=== PATIENT | female | born 1955 | race Hispanic/Latino ===

== ENCOUNTER → 2020-06-01 09:05 | Outpatient (CLI) | payer OTHER, SELFPAY ==
--- NOTE | 2020-06-01 09:08 | DI.US.S_ITS ---
PROCEDURE: US CAROTID DOPPLER BI INDICATIONS: Occlusion and stenosis of carotid arteries TECHNIQUE: Color and pulse Doppler interrogation was performed of both carotid systems, with image documentation and velocity measurements. COMPARISON: None. FINDINGS: Stenosis calculations are based on SRU (Society of Radiologists in Ultrasound) criteria. Right side: Brachial blood pressure: 155/68 mm Hg. Common carotid artery peak systolic velocity: 86 cm/sec. Internal carotid artery peak systolic velocity: 214 cm/sec. Internal carotid artery end diastolic velocity: 45 cm/sec. External carotid artery peak systolic velocity: 100 cm/sec. ICA/CCA peak systolic ratio: 2.5 Walker scale imaging description: Atherosclerotic changes can be seen. Percent internal carotid artery stenosis: Greater than 70%. Vertebral artery: Flow direction is antegrade. Left side: Brachial blood pressure: 157/62 mm Hg. Common carotid artery peak systolic velocity: 93 cm/sec. Internal carotid artery peak systolic velocity: 125 cm/sec. Internal carotid artery end diastolic velocity: 30 cm/sec. External carotid artery peak systolic velocity: 96 cm/sec. ICA/CCA peak systolic ratio: 1.3 Walker scale imaging description: Moderate atherosclerotic changes are seen. Percent internal carotid artery stenosis: 50-69% by velocity criteria. Vertebral artery: Flow direction is antegrade. IMPRESSION: There is greater than 70% stenosis seen involving the right internal carotid artery. Vascular surgery/interventional radiology consultation is recommended. By velocity criteria, there is a moderate stenosis (between 50 and 69% stenosis) within the left proximal internal carotid artery. The true degree of stenosis is felt most likely to be at the lower end of this range. Dictated by: Balta Cardenas M.D. on 06/01/2020 at 10:30 Approved by: Balta Cardenas M.D. on 06/01/2020 at 10:32
== END ==
PROVIDERS: Referring Provider Internal Medicine; Visit Provider Internal Medicine
DX: I65.23 Occlusion and stenosis of bilateral carotid arteries (principal)
CPT/HCPCS: 93880

== ENCOUNTER → 2020-07-15 15:21 | Outpatient (CLI) | payer OTHER, SELFPAY ==
[2020-07-15 16:15] LABS: Add Manual Diff / Slide Review NO; Basophils Absolute Auto 100 /uL (0-100); Basophils Percent Auto 0.7 % (0-2); Eosinophils Absolute Auto 200 /uL (0-450); Eosinophils Percent Auto 2.2 % (2-4); Hematocrit 37.2 % (36-46); Hemoglobin 12.6 g/dL (12.0-16.0); Lymphocytes Absolute Auto 2000 /uL (1100-4500); Lymphocytes Percent Auto 19.8 % (25-40); Mean Corpuscular HGB Conc 33.9 % (30-36); Mean Corpuscular Hemoglobin 30.6 PG (26-34); Mean Corpuscular Volume 90.2 fL (80-100); Monocytes Absolute Auto 600 /uL (0-900); Neutrophils Absolute Auto 7400 /uL (1500-7000); Neutrophils Percent Auto 71.3 % (50-75); Platelet Count 306 X10^3/uL (150-400); Red Blood Cell Count 4.12 X10^6/uL (4.0-5.2); Red Cell Distribution Width 12.9 % (11.6-14.8); White Blood Cell Count 10.3 X10^3/uL (4.5-11.0)
== END ==
PROVIDERS: Internal Medicine Cardiovascular Disease; PCP Internal Medicine; Referring Provider Internal Medicine; Visit Provider Internal Medicine
DX: R06.02 Shortness of breath (principal)
CPT/HCPCS: 36415; 85025

== ENCOUNTER → 2020-09-22 11:31 | Outpatient (CLI) | payer OTHER, SELFPAY ==
[2020-09-22 13:36] LABS: TSH w/ Reflex to FT4 0.13 uIU/mL (0.47-4.68)
[2020-09-22 15:12] LABS: Free T4, Direct Thyroxine 1.09 ng/dL (0.78-2.19)
== END ==
PROVIDERS: PCP Internal Medicine; Referring Provider Internal Medicine Cardiovascular Disease; Visit Provider Internal Medicine Cardiovascular Disease
DX: R00.2 Palpitations (principal)
CPT/HCPCS: 36415; 84439; 84443

== ENCOUNTER → 2021-11-11 11:07 | Outpatient (CLI) | payer MEDICARE, OTHER, SELFPAY ==
[2021-11-11 11:46] LABS: COVID19 -Nasal RAPID Negative (Negative)
== END ==
PROVIDERS: PCP Internal Medicine; Referring Provider Internal Medicine; Visit Provider Internal Medicine
DX: Z20.822 Contact with and (suspected) exposure to COVID-19 (principal)
CPT/HCPCS: 87635; C9803

== ENCOUNTER → 2021-11-12 08:10 | Outpatient (CLI) | payer MEDICARE, OTHER, SELFPAY ==
--- NOTE | 2021-11-17 09:12 | PM.PFT.1 ---
Pulmonary Function Test Referral & Results Date Patient Seen: 11/12/21 Requesting provider: Niels Adler Results: The spirometry demonstrates an FVC of 2.96 L which is 101% of predicted. The FEV1 was measured at 2.23 L which is 100% of predicted. The FEV1/FVC ratio was 75 which is 97% of predicted. Following the administration of bronchodilator there was a 19% improvement in FEF 25-75%. Lung volumes show an SVC of 3.23 L which is 117% of predicted. The diffusing capacity was measured at 20.33 which is 94% of predicted. The maximum voluntary ventilation was normal Interpretation: This study demonstrates normal pulmonary function
== END ==
PROVIDERS: PCP Nurse Practitioner Family; Referring Provider Internal Medicine Critical Care Medicine; Visit Provider Internal Medicine Critical Care Medicine
DX: R06.09 Other forms of dyspnea (principal); F17.210 Nicotine dependence, cigarettes, uncomplicated; J98.8 Other specified respiratory disorders
CPT/HCPCS: 94060; 94726; 94729

== ENCOUNTER → 2022-02-15 09:12 | Outpatient (CLI) | payer OTHER, SELFPAY ==
--- NOTE | 2022-02-15 09:14 | DI.ECHO.S_ITS ---
[place] +---------+ [facility] +---------+ : : [address] : : : : [id number] : : : : Phone: [phone] Echocardiogram Report + + :Name: SUMANTH CARLSON Study Date: 02/15/2022 Height: 61 in : :[facility] ReadingLocation: Weight: 112 lb : : Gender: Female BSA: 1.5 m2 : :: 1955 Age: 66 yrs BP: 126/62 mmHg: :Reason For Study: Aortic valve insufficiency : :Ordering Physician: Caitlin : :Vidal Salmeron Performed By: Mary Ann Sawyer : :Referring: CAITLIN SALMERON : + + Interpretation Summary 1) Normal left ventricular thickness, size, wall motion, and systolic function (EF 65-70%). 2) Normal right ventricular size and function. 3) There is mild aortic stenosis (mean gradient 19mmHg, valve area 1.9cm2). Gradient higher than expected due to high flow state. 4) There is moderate aortic regurgitation. 5) No prior Echo available for comparison. Procedure: A two-dimensional transthoracic echocardiogram with color flow and Doppler was performed. The study quality was technically difficult. The patient was in sinus rhythm with heart rates between 60-69 bpm during the exam. Left Ventricle: The left ventricle is normal in size and wall thickness. The ejection fraction is estimated to be 65-70%. Left ventricular systolic function appears normal without focal wall motion abnormalities. Diastolic parameters suggest probable normal left ventricular diastolic function and normal filling pressures. Right Ventricle: The right ventricle is normal in size and function. The right ventricular systolic function is normal. Atria: The left atrial size is normal. Right atrial size is normal. There is no Doppler evidence for an interatrial shunt. Mitral Valve: The mitral valve is normal in structure and function. There is trace mitral regurgitation. Aortic Valve: The aortic valve is normal in structure and function. There is mild aortic stenosis. There is moderate aortic regurgitation. Tricuspid Valve: The tricuspid valve is normal in structure and function. There is mild tricuspid regurgitation. The right ventricular systolic pressure is estimated to be at least 28.3 mmHg based on an estimated right atrial pressure of 3 mm Hg. Pulmonic Valve: The pulmonic valve leaflets are thin and pliable; valve motion is normal. There is a trace or physiologic amount of pulmonic regurgitation. Great Vessels: The ascending aorta could not be visualized. The IVC is of normal diameter and collapses greater than 50% with a sniff. This suggests a low right atrial pressure of 3 mm Hg. Pericardium/ Pleura There is a trivial pericardial effusion noted. There is no pleural effusion. MMode/2D Measurements & Calculations LVIDd: 3.9 cm LVOT diam: 1.9 cm LVIDs: 2.3 cm Ao root diam: 2.4 cm FS: 41.0 % EPSS: 0.30 cm IVSd: 0.50 cm LVPWd: 0.60 cm LV mir. diameter/BSA (cm/m^2): 2.6 LV sys. diameter/BSA (cm/m^2): 1.6 LA dimension: 3.2 cm RA long axis: 4.1 cm LA A2 area: 16.7 cm2 RA area: 10.8 cm2 LA A4 area: 11.5 cm2 RA vol: 24.4 ml LA length (vol): 4.8 cm RA : 16.5 ml/m2 LA vol: 34.0 ml LA vol index: 23.0 ml/m2 LVLs ap4: 4.5 cm LVLd ap2: 7.2 cm LVLs ap2: 4.3 cm TAPSE_phl: 3.2 cm Doppler Measurements & Calculations Ao V2 max: 310.0 cm/sec LVOT Max Ace: 190.0 cm/sec Ao V2 mean: 206.0 cm/sec LV V1 max P.4 mmHg Ao max P.0 mmHg LV V1 VTI: 45.1 cm Ao mean P.0 mmHg ELADIO(I,D): 1.9 cm2 Ao V2 VTI: 65.8 cm ELADIO(V,D): 1.7 cm2 sev ratio: 0.69 ELADIO indexed to BSA (cm^2/m^2): 1.3 AI P1/2t: 410.3 msec AI dec slope: 289.3 cm/sec2 MV E max ace: 119.0 cm/sec TR max ace: 257.0 cm/sec MV A max ace: 111.0 cm/sec TR max P.9 mmHg MV E/A: 1.1 PA V2 max: 105.0 cm/sec Med Peak E' Ace: 9.9 cm/sec PA V2 mean: 69.0 cm/sec E/E' med: 12.1 PA mean P.0 mmHg Lat Peak E' Ace: 9.5 cm/sec E/E' lat: 12.6 E/e' average: 12.3 MV dec time: 0.23 sec MVA(VTI): 3.0 cm2 MV V2 mean: 73.4 cm/sec SV(LVOT): 127.9 ml MV mean P.0 mmHg MV V2 VTI: 42.4 cm AV P1/2t-pr_phl: 416.0 msec MV P1/2t-pr_phl: 68.0 msec AV VR_phl: 0.61 ELADIO(VTI)/BSA_phl: 1.3 Reading Physician:12:14 PM
== END ==
PROVIDERS: PCP Nurse Practitioner Family; Referring Provider Internal Medicine Cardiovascular Disease; Visit Provider Internal Medicine Cardiovascular Disease
DX: I08.2 Rheumatic disorders of both aortic and tricuspid valves (principal)
CPT/HCPCS: 93306

== ENCOUNTER → 2023-10-06 11:31 | Outpatient (CLI) | payer MEDICARE, OTHER, SELFPAY ==
--- NOTE | 2023-10-06 11:33 | DI.MG.S_ITS ---
BILATERAL DIGITAL SCREENING MAMMOGRAM 3D/2D WITH CAD: 10/06/2023 CLINICAL: Routine screening. Family history of breast cancer. Comparison is made to exams dated: 12/23/2021 mammogram - [facility], 06/14/2017 mammogram - [facility], and 11/28/2014 mammogram - [facility]. There are scattered areas of fibroglandular density in both breasts (category b / 25%-50% glandular tissue). Current study was also evaluated with a Computer Aided Detection (CAD) system. No significant masses, calcifications, or other findings are seen in either breast. There has been no significant interval change. IMPRESSION: NEGATIVE There is no mammographic evidence of malignancy. A 1 year screening mammogram is recommended. Based on the Tyrer Cuzick model (a risk assessment model) the patient's lifetime risk is 7.5% and her 10 year risk is 4.0%. According to the ACR, ACS, and NCCN guidelines, an annual breast MRI exam along with mammogram is recommended if the patient's lifetime risk is 20% or greater. This exam was interpreted at Station ID: [id number]. NOTE: For mammograms, a report in lay terms will be sent to the patient. Approximately 15% of breast malignancies will not be visualized mammographically. In the management of a palpable breast mass, a negative mammogram must not discourage biopsy of a clinically suspicious lesion. Electronically Signed By: Johnny radford/sanjuana:10/06/2023 13:42:37 letter sent: Normal Exam ACR BI-RADS Category 1: Negative [id number]
== END ==
PROVIDERS: PCP Nurse Practitioner Family; Referring Provider Nurse Practitioner Family; Visit Provider Nurse Practitioner Family
DX: Z12.31 Encounter for screening mammogram for malignant neoplasm of breast (principal); Z80.3 Family history of malignant neoplasm of breast; R92.323 Mammographic fibroglandular density, bilateral breasts
CPT/HCPCS: 77063; 77067

== ENCOUNTER → 2024-02-19 13:43 | Outpatient (CLI) | payer MEDICARE, OTHER, SELFPAY ==
--- NOTE | 2024-02-19 | DI.ECHO.S_ITS ---
[place] +---------+ Hospital : : [address] : [place] : : [phone] : : Phone: [phone] Echocardiogram Report + + :Name: SUMANTH CARLSON Study Date: 02/19/2024 Height: 61 in : :[facility] ReadingLocation: Weight: 113 lb : : Gender: Female BSA: 1.5 m2 : :: 1955 Age: 68 yrs BP: 132/62 mmHg: :Reason For Study: AORTIC VALVE STENOSIS : :Ordering Physician: HENRY, : :CAITLIN Performed By: Khai Mooney : :Referring: CAITLIN SALMERON : + + Interpretation Summary 1) Normal left ventricular thickness, size, wall motion, and systolic function (EF 65-70%). 2) Normal right ventricular size and function. 3) There is mild to moderate aortic stenosis (mean gradient 23mmHg, valve area 1.4cm2). 4) There is moderate aortic regurgitation. 5) Compared to the Echo done 02/15/2022, aortic stenosis has progressed from mild to mild-moderate on this study. Procedure: A two-dimensional transthoracic echocardiogram with color flow and Doppler was performed. The study quality was technically adequate. Comparison is made with the echocardiogram of 02/15/2022. The patient was in normal sinus rhythm during the exam. Left Ventricle: The left ventricle is normal in size. There is normal left ventricular wall thickness. There is no ventricular septal defect visualized. The ejection fraction is estimated to be 65-70%. There are no focal wall motion abnormalities. Diastolic parameters suggest probable normal left ventricular diastolic function and normal filling pressures. Right Ventricle: The right ventricle is normal in size and function. Atria: The left atrial size is normal. Right atrial size is normal. There is no Doppler evidence for an interatrial shunt. Mitral Valve: The mitral valve leaflets appear mildly thickened, but open well. There is systolic anterior motion of the chordal apparatus. There is mild mitral regurgitation. Aortic Valve: The aortic valve is moderately calcified. There is mild to moderate aortic stenosis. The peak aortic velocity is 3.44 m/sec. The aortic valve mean gradient is 22.6 mmHg. There is moderate aortic regurgitation. Tricuspid Valve: The tricuspid valve leaflets are thin and pliable. There is mild tricuspid regurgitation. The right ventricular systolic pressure is estimated to be at least 34 mmHg based on an estimated right atrial pressure of 3 mm Hg. Pulmonic Valve: The pulmonic valve is not well seen, but is grossly normal. There is no pulmonic valvular regurgitation. Great Vessels: The aortic root is normal size. The ascending aorta could not be visualized. The pulmonary is not well visualized. The IVC is of normal diameter and collapses greater than 50% with a sniff. This suggests a low right atrial pressure of 3 mm Hg. Pericardium/ Pleura There is no pericardial effusion. There is no pleural effusion. MMode/2D Measurements & Calculations LVIDd: 4.2 cm LVOT diam: 1.6 cm LVIDs: 2.6 cm Ao root diam: 2.6 cm FS: 37.4 % Ao Arch Diam (Prox Trans): 1.8 cm EPSS: 0.30 cm IVSd: 0.64 cm LVPWd: 0.80 cm LV mir. diameter/BSA (cm/m^2): 2.9 LV sys. diameter/BSA (cm/m^2): 1.8 LA A2 area: 16.9 cm2 RA long axis: 3.3 cm LA A4 area: 12.4 cm2 RA area: 7.1 cm2 LA length (vol): 4.1 cm RA vol: 13.3 ml LA vol: 43.6 ml RA : 9.0 ml/m2 LA vol index: 29.4 ml/m2 IVC diam: 1.7 cm RVD1 (basal): 3.0 cm RVD2 (mid): 2.4 cm TAPSE: 2.5 cm Doppler Measurements & Calculations Ao V2 max: 343.7 cm/sec LVOT Max Ace: 198.9 cm/sec Ao V2 mean: 219.1 cm/sec LV V1 max P.8 mmHg Ao max P.3 mmHg LV V1 VTI: 51.9 cm Ao mean P.6 mmHg ELADIO(I,D): 1.4 cm2 Ao V2 VTI: 75.9 cm ELADIO(V,D): 1.2 cm2 sev ratio: 0.68 ELADIO indexed to BSA (cm^2/m^2): 0.95 AI P1/2t: 381.9 msec AI dec slope: 402.3 cm/sec2 MV E max ace: 96.5 cm/sec TR max ace: 278.0 cm/sec MV A max ace: 109.3 cm/sec TR max P.9 mmHg MV E/A: 0.88 PA V2 max: 101.5 cm/sec Med Peak E' Ace: 7.7 cm/sec PA V2 mean: 78.9 cm/sec E/E' med: 12.5 PA mean P.7 mmHg Lat Peak E' Ace: 6.4 cm/sec PA pr(Accel): 32.8 mmHg E/E' lat: 15.0 E/e' average: 13.7 MV dec time: 0.17 sec SV(LVOT): 107.3 ml Reading Physician:01:45 PM
== END ==
PROVIDERS: PCP Nurse Practitioner Family; Referring Provider Internal Medicine Cardiovascular Disease; Visit Provider Internal Medicine Cardiovascular Disease
DX: I08.3 Combined rheumatic disorders of mitral, aortic and tricuspid valves (principal)
CPT/HCPCS: 93306

== ENCOUNTER → 2024-10-30 09:14 | Outpatient (CLI) | payer MEDICARE, OTHER, SELFPAY ==
--- NOTE | 2024-10-30 09:16 | DI.ECHO.S_ITS ---
[place] +---------+ Hospital : : [address] : [place] : : [phone] : : Phone: [phone] Echocardiogram Report + + :Name: SUMANTH CARLSON Study Date: 10/30/2024 Height: 61.5 in: :[facility] ReadingLocation: Weight: 109 lb : : Gender: Female BSA: 1.5 m2 : :: 1955 Age: 69 yrs BP: 185/83 mmHg: :Reason For Study: AORTIC VALVE STENOSIS : :Ordering Physician: HENRY, : :CAITLIN Performed By: Mary Ann Garcia : :Referring: CAITLIN SALMERON : + + Interpretation Summary 1) Normal left ventricular thickness, size, wall motion, and systolic function (EF 65-70%). 2) Normal right ventricular size and function. 3) There is mild to moderate aortic stenosis (mean gradient 25mmHg, valve area 1.2cm2). 4) There is mild-moderate aortic regurgitation. 5) Compared to the Echo done 02/19/2024, no signficiant change. Procedure: A two-dimensional transthoracic echocardiogram with color flow and Doppler was performed. The study quality was technically adequate. Comparison is made with the echocardiogram of 02/19/2024. The patient was in sinus rhythm with heart rates between 77-88 bpm during the exam. Left Ventricle: The left ventricle is normal in size and wall thickness. The ejection fraction is estimated to be 65-70%. Left ventricular systolic function appears normal without focal wall motion abnormalities. Normal diastolic function. Right Ventricle: The right ventricle is normal in size and function. Atria: The left atrial size is normal. Right atrial size is normal. There is no Doppler evidence for an interatrial shunt. Mitral Valve: The mitral valve leaflets appear mildly thickened. There is mild mitral regurgitation. Aortic Valve: The aortic valve is trileaflet. The peak aortic velocity is 3.63 m/sec. The aortic valve mean gradient is 25 mmHg. The calculated aortic valve area is 1.2 cm2. Gradient higher than expected due to high flow state. There is mild to moderate aortic regurgitation. Tricuspid Valve: The tricuspid valve leaflets are thin and pliable. There is mild tricuspid regurgitation. Pulmonary artery pressures cannot be estimated because of the lack of a measurable TR jet velocity but the IVC suggests a CVP of around 3 mmHg. Pulmonic Valve: The pulmonic valve is not well visualized. Great Vessels: The aortic root is normal size. The dimensions of the ascending aorta are normal. The IVC is of normal diameter and collapses greater than 50% with a sniff. This suggests a low right atrial pressure of 3 mm Hg. Pericardium/ Pleura There is no pericardial effusion. There is no pleural effusion. MMode/2D Measurements & Calculations LVIDd: 4.3 cm LVOT diam: 1.7 cm LVIDs: 2.4 cm asc Aorta Diam: 3.0 cm FS: 43.8 % Ao Arch Diam (Prox Trans): 2.0 cm IVSd: 0.82 cm LVPWd: 0.70 cm LV mir. diameter/BSA (cm/m^2): 2.9 LV sys. diameter/BSA (cm/m^2): 1.7 LA A2 area: 16.7 cm2 RA long axis: 4.3 cm LA A4 area: 15.0 cm2 RA area: 11.1 cm2 LA length (vol): 4.4 cm RA vol: 24.6 ml LA vol: 48.2 ml RA : 16.8 ml/m2 LA vol index: 32.8 ml/m2 IVC diam: 0.76 cm RVD1 (basal): 3.3 cm RVD2 (mid): 2.5 cm TAPSE: 2.0 cm Doppler Measurements & Calculations Ao V2 max: 363.2 cm/sec LVOT Max Ace: 194.7 cm/sec Ao V2 mean: 225.7 cm/sec LV V1 max P.2 mmHg Ao max P.8 mmHg LV V1 VTI: 41.8 cm Ao mean P.4 mmHg ELADIO(I,D): 1.3 cm2 Ao V2 VTI: 69.7 cm ELADIO(V,D): 1.2 cm2 sev ratio: 0.60 ELADIO indexed to BSA (cm^2/m^2): 0.90 AI P1/2t: 465.3 msec AI dec slope: 290.5 cm/sec2 MV E max ace: 107.0 cm/sec SV(LVOT): 92.0 ml MV A max ace: 129.4 cm/sec MV E/A: 0.83 Med Peak E' Ace: 9.2 cm/sec E/E' med: 11.6 Lat Peak E' Ace: 8.5 cm/sec E/E' lat: 12.6 E/e' average: 12.1 MV dec time: 0.18 sec Reading Physician:01:08 PM
== END ==
PROVIDERS: PCP Nurse Practitioner Family; Referring Provider Nurse Practitioner Family; Visit Provider Internal Medicine Cardiovascular Disease
DX: I08.3 Combined rheumatic disorders of mitral, aortic and tricuspid valves (principal)
CPT/HCPCS: 93306